=== PATIENT | male | born 1990 | race Two or more races ===

== ENCOUNTER 2017-03-04 00:31 | Emergency (ER) | payer MEDICAID ==
[~2017-03-04] VITALS: Ht 177.8 cm; Wt 139.3 kg
[2017-03-04 01:22] VITALS: BP 128/88
[2017-03-04] MEDS ORDERED: cefTRIAXone SOD 1,000 MG VL IM ONE (04:00)
== END 2017-03-04 03:55 | disposition home or self-care (01) ==
LOC: ER 00:33
DX: L03.112 Cellulitis of left axilla (principal)
CPT/HCPCS: 10060; 96372; 99283; J0696